=== PATIENT | male | born 1955 | race Two or more races ===

== ENCOUNTER 2023-09-28 15:47 | Emergency (ER) | payer MEDICARE, OTHER ==
[~2023-09-28] VITALS: Ht 165.1 cm; Wt 82.6 kg
[2023-09-28 17:28] LABS: EOSINOPHILS % (AUTO) 0.1 % (0.0-6.0); HEMATOCRIT 46 % (39-51); HEMOGLOBIN 15.4 g/dL (13.5-17.5); LYMPHOCYTES # (AUTO) 0.8 K/uL (0.8-4.8); LYMPHOCYTES % (AUTO) 7.3 % (20.0-44.0); MEAN CORPUSCULAR HEMOGLOBIN 29 PG (26.0-33.0); MEAN CORPUSCULAR HGB CONC 34 g/dl (31.0-36.0); MEAN CORPUSCULAR VOLUME 87 fL (80-96); MONOCYTES # (AUTO) 0.4 K/uL (0.1-1.30); MONOCYTES % (AUTO) 3.6 % (2.0-12.0); PLATELET COUNT (AUTO) 236 K/uL (150-450); RED BLOOD CELL COUNT(AUTO) 5.27 MIL/uL (4.5-6.0); RED CELL DISTRIBUTION WIDTH 13.4 % (11.5-15.0); WHITE BLOOD COUNT (AUTO) 11.3 K/uL (4.3-11.0)
[2023-09-28] MEDS ORDERED: LORA-259 PO (17:44)
[2023-09-28] MEDS ORDERED: ASPI-1420 PO (17:44)
[2023-09-28] MEDS ORDERED: ERGO500093 PO (17:44)
[2023-09-28] MEDS ORDERED: TRAM50TA2 PO (17:46)
[2023-09-28 17:47] LABS: CALCIUM, SERUM 9.1 mg/dL (8.5-10.1); CARBON DIOXIDE 26 mmol/L (21-32); CHLORIDE 101 mmol/L (98-107); GLUCOSE 195 mg/dL (74-106); POTASSIUM 3.6 mmol/L (3.5-5.1); SODIUM SERUM 136 mmol/L (136-145); UREA NITROGEN, BLOOD 16 mg/dL (7-18)
[2023-09-28] MEDS ORDERED: ONDANSETRON HCL/PF - ER 4 MG/2 ML VIAL IV ONE ×2 (18:00→21:00)
[2023-09-28] MEDS ORDERED: MORPHINE SULFATE INJ 2 MG/ML DISP.SYRIN IV ONE (18:00)
[2023-09-28 18:02] LABS: ALANINE AMINOTRANSFERASE 89 U/L (12-78); ALCOHOL, BLOOD < 3 mg/dL (0-10); ALKALINE PHOSPHATASE 51 U/L (46-116); ASPARTATE AMINOTRANSFERASE 30 U/L (15-37); BILIRUBIN,TOTAL 0.6 mg/dL (0.2-1.0); NT-PRO BNP 26 pg/mL (0-125); TOTAL PROTEIN, SERUM 7.5 g/dL (6.4-8.2)
[2023-09-28] MEDS ORDERED: ONDANSETRON HCL/PF 4 MG/2 ML VIAL ONE ×2 (18:03→21:00)
[2023-09-28] MEDS ORDERED: MORPHINE SULFATE INJ 2 MG/ML DISP.SYRIN ONE (18:03)
[2023-09-28 18:05] LABS: ACETAMINOPHEN 0 ug/ml (10-30); SALICYLATE < 0.2 mg/dL (2.8-20.0)
[2023-09-28 18:06] LABS: LACTIC ACID 2.2 mmol/L (0.4-2.0)
[2023-09-28] MEDS ORDERED: CEFTRIAXONE 1GM BAG (ER ONLY) 50 ML IV ONE (18:22)
[2023-09-28] MEDS ORDERED: CEFTRIAXONE 1 G in IV D5W 50 ML IV ONE (18:30)
[2023-09-28] MEDS ORDERED: IV NS 0.9% 1,000 ML IV ONE (18:30)
[2023-09-28] MEDS ORDERED: IOHEXOL-300 100 ML VIAL IV ONE (19:01)
[2023-09-28] MEDS ORDERED: CT SWABBABLE VALVE TRANS SET 1 EA INFUS.SET MC ONE (19:01)
[2023-09-28] MEDS ORDERED: IV NS 0.9% 250 ML IV ONE (19:01)
[2023-09-28 20:38] LABS: BILIRUBIN,DIRECT 0.1 mg/dL (0.0-0.2)
[2023-09-28] MEDS ORDERED: ACETAMINOPHEN 325 MG TABLET ONE (20:48)
[2023-09-28 20:59] LABS: LACTIC ACID REFLEX 2.7 mmol/L (0.4-1.9)
[2023-09-28] MEDS ORDERED: ACETAMINOPHEN 325 MG TABLET PO ONE (21:00)
[2023-09-29 00:44] LABS: ALBUMIN 3.7 g/dL (3.4-5.0); BILIRUBIN,TOTAL 0.7 mg/dL (0.2-1.0); CALCIUM, SERUM 8.8 mg/dL (8.5-10.1); CREATININE 0.9 mg/dL (0.6-1.3); POTASSIUM 3.4 mmol/L (3.5-5.1)
[2023-09-29 00:56] LABS: LACTIC ACID 2.2 mmol/L (0.4-2.0)
[2023-09-29] MEDS ORDERED: MORPHINE SULFATE INJ 4 MG/ML DISP.SYRIN ONE (01:23)
[2023-09-29] MEDS ORDERED: MORPHINE SULFATE INJ 2 MG/ML DISP.SYRIN IV ONE (01:30)
[2023-09-29 06:14] VITALS: TEMP 98.4
[2023-09-29 08:14] VITALS: BP 145/79; O2SAT 96
== END 2023-09-29 09:21 | disposition short-term general hospital (02) ==
LOC: ER 15:49 → TELE1 21:49 → UNDOADMIN 21:49 → ER 09-29 09:21
DX: T49.0X1A Poisoning by local antifungal, anti-infective and anti-inflammatory drugs, accidental (unintentional), initial encounter (principal); E87.20 Acidosis, unspecified; H47.9 Unspecified disorder of visual pathways; I10 Essential (primary) hypertension; Z20.822 Contact with and (suspected) exposure to COVID-19; Z79.82 Long term (current) use of aspirin; Z79.899 Other long term (current) drug therapy; Y92.89 Other specified places as the place of occurrence of the external cause
CPT/HCPCS: 99285; 96365; 96375; 93005 ×2; 71045; 96376 ×2; 70450 ×2; 74177; 82248; 85025; 87040; 83605 ×3; 36415 ×2; 80053 ×2; 84484 ×2; 83880; 87426; 80143; 80320; 82962; J0696 ×2; J2405 ×4; J7060; J7030; J7050; J2270 ×2; Q9967; G0480